=== PATIENT | female | born 1975 | race African-American/Black ===

== ENCOUNTER → 2020-01-24 | Outpatient (CLI) | payer OTHER, BC ==
[~2020-01-24] VITALS: Ht 154.9 cm; Wt 74.4 kg
[~2020-01-24] MED LIST: ACETAMINOPHEN PO; ADVIL200 M1 PO; CALCIUM500 M1 PO; CALCIUM500 MG PO; EMLA TOP; FERRIC CITRATE210 MG PO; HYDROCODONE-AP1 EA11 PO; LIDOCAINE 1% IV; MARINOL 2.5 MG2.5 M1 PO; MIDODRINE HCL10 MG PO; MIRALAX119 GM PO; NEURONTIN 300300 M1 PO; ONDANSETRON4 MG/2 ML IV; SIMVASTATIN80 MG PO; SLEEP AID50 MG PO; SODIUM THI12.5 GM/50 IV PUSH; VICOPROFEN PO; [UNRECOGNIZED DRUG - OTHER] IV
--- NOTE | ~2020-01-24 | HPC ---
[facility] [place] [address] PAIN MANAGEMENT CONSULTATION Name: CARMEN COOK Room #: REG Alvarez Mckeon#: [id number] Admission: 01/24/20 Attend Phys: Jose Herron MD Discharge: Date of : 77 Report #: [id number] THIS REPORT FOR: cc: Leeroy Guidry Theodore M. DO Morgan, Richard L. 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 The patient is a pleasant 44-year-old who is here today with her son's girlfriend. She is legally blind. She is on dialysis for chronic renal failure. She has been on dialysis since 2009. She had renal failure diagnosis in the early 1999, received a kidney in 2004, but lost the kidney in 2009 and has been dialyzing since. She has developed calciphylaxis condition associated with dialysis. This has resulted in ischemic digits and she generally recovers from the episodes. At that time that the ulcers form in the end of her finger, they excruciatingly painful and she has difficulty with light touch and anything that comes in contact with her hands. As a blind woman, her hands of course take on additional needs as she is limited in her senses. She scores her pain as a 9 or 10. When I initially saw her chart and heard that she was on Vicoprofen, I was concerned that since she is anephric and dialyzing, the ibuprofen does not have renal concerns. There are some GI concerns of course with nonsteroidal anti-inflammatory drugs, but she has found that ibuprofen and the nonsteroidal anti-inflammatory drugs in combination with hydrocodone are her most beneficial combination of medications. She is currently taking 2 Vicoprofen 7.5/200 tablets in the morning and 2 in the evening. She has taken it with food. Denies GI side effects. This has been enough to hold her pain at a tolerable level. This calculates to 30 mg of hydrocodone or morphine milligram equivalency of 30. She has received it from her primary care physician and also from other wound physician, but no one has been willing to continue prescribing it for her and for that reason, she is in our clinic today. CURRENT MEDICINES: Simvastatin, MiraLax, midodrine, Emla cream, Vicoprofen, dronabinol, diphenhydramine. [facility] [address] [place] [address] PAIN MANAGEMENT CONSULTATION Name: CARMEN COOK Room #: REG CLI Mike#: [id number] Admission: 01/24/20 Attend Phys: Jose Herron MD Discharge: Date of : 77 Report #: [id number] ALLERGIES: PROMETHAZINE. PAST MEDICAL HISTORY: Significant for renal failure and she had a transplant in 2004, followed by failure of the transplant for reasons that I am uncertain. The transplant kidney was removed on 04/04/2010 and she has been on dialysis since that time. She suffered a stroke 3 years ago and over the course of 3 days became completely blind. There was no other residual. She now has no sight, not even shadows. She walks with a cane and has been able to adjust with therapy. REVIEW OF SYSTEMS: Positive for blindness, fatigue, weakness, dyspnea on exertion, shortness of breath, loss of appetite, nausea and vomiting, constipation with opioids and insomnia. The patient denies use of alcohol, but has been smoking a few cigarettes. She was counseled. Obviously, there are many reasons for her not to smoke including pain. 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 She has 2 grown sons. PHYSICAL EXAMINATION: GENERAL: Pleasant, soft spoken, 44-year-old. She is blind. She is 5 feet and 1, 164 pounds with a BMI of 31.0. VITAL SIGNS: Blood pressure is 126/85, heart rate 91, respirations 16, O2 sat 100, pain intensity 9. CHEST: Clear. CARDIAC: Rhythm is regular. MUSCULOSKELETAL: Examination of her hands reveals healing eschar on the third digit of the right hand. The left hand is okay at this time. Both hands, particularly the second, third and fourth digit, show allodynia and exquisite hypersensitivity to touch. Pulses at the radial and brachial artery are present and full. Capillary refill is diminished bilaterally. There are no nodules identified that are sometimes seen with calciphylaxis. IMPRESSION: 1. Severe chronic pain related to calciphylaxis. 2. Chronic renal failure, on dialysis. 3. Blindness following stroke 3 years ago. 4. Chronic nausea and constipation. 5. Management of high risk medications. I have assumed her Vicoprofen prescription for her under terms of written agreement. We discussed the important aspects of this, first of all one prescribing physician and a single pharmacy. She must safeguard her medicines. [facility] [address] [place] [address] PAIN MANAGEMENT CONSULTATION Name: CARMEN COOK Room #: REG MIKE Mckeon#: [id number] Admission: 01/24/20 Attend Phys: Jose Herron MD Discharge: Date of : 77 Report #: [id number] She is given this information that her pain is improved and her day-to-day function is also significantly better following medications. The improvement in daily function as well as her improvement just from a palliative sense in pain, I think warrants the use of the medicine. We discussed long-term use, the issues of dependence and addiction. The importance of avoiding a situation where she runs out of medicine can go into withdrawal. Finally, we have discussed the importance of using these medications cautiously as medications not as drugs and it is her responsibility to safeguard medications under terms of our agreement. She may be responsible for a urine drug screen to confirm her proper use of medications. She voices understanding of this as I read to her the agreement due to her blindness and we will plan to see her back in the pain clinic in 1 month. Complex medication office visit. By: [id number] Jose Herron MD /nt
[2020-01-24 15:17] VITALS: BP 126/85
--- NOTE | 2020-01-24 15:18 | NUR ---
Pain Clinic Assessment: 1. History of Osteoarthritis: Not Applicable History of Rheumatoid Arthritis: Not Applicable 2. Height: 5 ft. 1 in. 154.9 cm. Weight: 164.0 lb. oz. 74.390 kg. Patient's BMI: 31.0 3. Vital Signs: BP: 126/85 Pulse: 91 Resp: 16 Temp: 02 Sat: 100 ECG Mon: 4. Pain Intensity: 9 5. Fall Risk: Dizziness: Needs help standing or walking: Fallen in the last 3 months: Fall risk comments: 6. Patient on Blood Thinner: None 7. History of Hypertension: N 8. Opioid Therapy greater than 6 weeks: Y Opiate Contract Signed: 9. Risk Assessment Tool Provided: 10. Functional Assessment Tool: 11. Recreational Drug Use: Never Drug Type: Tobacco Use: Current Every Day Smoker Tobacco Type: Cigarettes Amount or Packs/day: 2-3 CIGS How Many Years: 10 Alcohol Use: Yes Frequency: Special Occasions Quant: 1-2
== END ==
LOC: PAIN 06:50
DX: G89.21 Chronic pain due to trauma (principal); E83.59 Other disorders of calcium metabolism; I12.0 Hypertensive chronic kidney disease with stage 5 chronic kidney disease or end stage renal disease; N18.6 End stage renal disease; Z99.2 Dependence on renal dialysis; H54.7 Unspecified visual loss; K59.09 Other constipation; R11.0 Nausea; Z79.899 Other long term (current) drug therapy; Z79.84 Long term (current) use of oral hypoglycemic drugs; Z88.8 Allergy status to other drugs, medicaments and biological substances

== ENCOUNTER → 2020-02-21 | Outpatient (CLI) | payer OTHER, BC ==
[~2020-02-21] VITALS: Ht 154.9 cm; Wt 76.9 kg
[~2020-02-21] MED LIST changes: +HYDROCODONE-AP1 EACH PO
[2020-02-21 10:36] VITALS: BP 99/59
--- NOTE | 2020-02-21 10:44 | NUR ---
Pain Clinic Assessment: 1. History of Osteoarthritis: Not Applicable History of Rheumatoid Arthritis: Not Applicable 2. Height: 5 ft. 1 in. 154.9 cm. Weight: 169.6 lb. oz. 76.930 kg. Patient's BMI: 32.1 3. Vital Signs: BP: 99/59 Pulse: 85 Resp: 16 Temp: 02 Sat: 96 ECG Mon: 4. Pain Intensity: 10 5. Fall Risk: Dizziness: N Needs help standing or walking: N Fallen in the last 3 months: N Fall risk comments: 6. Patient on Blood Thinner: None 7. History of Hypertension: N 8. Opioid Therapy greater than 6 weeks: Y Opiate Contract Signed: 02/21/20 9. Risk Assessment Tool Provided: LOW RISK 0/3 10. Functional Assessment Tool: 11. Recreational Drug Use: Never Drug Type: Tobacco Use: Current Every Day Smoker Tobacco Type: Cigarettes Amount or Packs/day: 1-2 CIGS/DAY How Many Years: Alcohol Use: Yes Frequency: Special Occasions Quant: 1-2
--- NOTE | 2020-02-22 07:39 | HPC ---
[facility] [place] [address] PAIN MANAGEMENT CONSULTATION Name: CARMEN COOK Room #: REG [facility] Mike#: [id number] Admission: 02/21/20 Attend Phys: Norma Vaughan Discharge: Date of : 77 Report #: [id number] THIS REPORT FOR: cc: Leeroy Guidry Theodore M. 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 HISTORY OF PRESENT ILLNESS: This is a very pleasant 44-year-old female who returns to the pain clinic today for evaluation of her opioid medications. She is new to our practice. In early January, Dr. Jose Herron was consulted to take over writing her pain medications from her primary care doctor and wound doctor. The patient has chronic hand pain as a result of calciphylaxis, most specifically on her left hand. Today, she reports a pain score 10/10 stating that the middle 3 fingers of her left hand are very painful. She reports that she takes 2 hydrocodone in the morning and 2 in the evening as well as her gabapentin 300 mg at night. She states that when she does take 2 pain pills at a time that it does decrease her pain. Her pain is an aching, sharp, radiating pain at times. She denies any pain on her right hand. She is here present with a caregiver today since she is legally blind. Today, she is requesting refills of her hydrocodone or possible increase. ALLERGIES: PROMETHAZINE. CURRENT LIST OF MEDICATIONS: Hydrocodone 7.5/325 mg two tablets b.i.d., gabapentin 300 mg at bedtime, simvastatin, MiraLax, Midrin, Emla cream, droperidol, Benadryl, sodium thiosulfate, ondansetron, lidocaine, ibuprofen and calcium. PQRS: 1. She denies any history of osteoarthritis or rheumatoid arthritis. 2. Height is 5 feet 1 inches, Weight is 169, BMI is 32. 3. Vital signs 99/59, pulse is 85, respirations 16, oxygen sat is 96. 4. Pain score is 10/10. 5. Denies dizziness, does not need help walking or standing, has not fallen in the last 3 months. 6. The patient is not on any blood thinners or medicine for hypertension. Her opioid therapy is greater than 6 weeks. We will have her sign an opioid contract today. 7. Risk assessment tool is low. Functional assessment is 32/70. 8. Recreational drug use, she denies. She is a current smoker of 1-2 cigarettes a day and does drink occasional alcohol. [address] [address] PAIN MANAGEMENT CONSULTATION Name: CARMEN COOK Room #: REG MIKE Mckeon#: [id number] Admission: 02/21/20 Attend Phys: Norma Vaughan Discharge: Date of : 77 Report #: [id number] According to the prescription monitoring system, patient filled a prescription on 01/28/2020, she did bring her pain pill bottle with her today that is empty. Dr. Jose Herron did prescribe 60 tablets, but patient has been taking 2 tablets twice a day, which is what she reported at her initial consultation. According to the CDC guidelines, her morphine mEq is 30 MME or lower based on her intake of medications. PHYSICAL EXAMINATION: GENERAL: This is alert and orientated 44-year-old female who appears her stated age, placing her current pain score 10/10. HEENT: She is blind. Normocephalic, atraumatic. Mucous membranes are moist. MUSCULOSKELETAL: Hands revealed eschar on the 3rd finger of her left hand and painful allodynia and hypersensitivity on the second and fourth digits. Her right hand has no pain presently. There are no nodules identified, currently is associated with calciphylaxis. IMPRESSION: 1. Severe chronic pain related to calciphylaxis. 2. Chronic renal failure, on dialysis. 3. Blindness following a cerebrovascular accident. 4. Chronic nausea and constipation on medications. 5. Management of high risk medications. PLAN: 1. We discussed treatment options with the patient today. The patient reports that she has been taking two Hydrocodone twice a day. According to the prescription that Dr. Jose Herron wrote, he prescribed one tablet twice a day, though it is documented that she reported she is taking two at a time when on her initial consultation. After discussion with Dr. Jose Herron, he is agreeable to increase her medications slightly to 10/325. I explained to the patient she is to take one tablet twice a day. This will have her at 20 morphine mEq a day. The patient is agreeable with this plan of care. 2. We will refill her gabapentin 300 mg at bedtime for 90-day supply, 90 pills will be sent electronically. 3. We will have the patient sign an opioid agreement. Dr. Jose Herron did discuss this with her at her initial consultation that we assume that she will take her medicines as prescribed and only obtain prescriptions from our office, fill them in a timely fashion at one pharmacy. The patient is agreeable to this plan of care. 4. The patient will return in 1 month for followup to see how she is adjusting [address] [address] PAIN MANAGEMENT CONSULTATION Name: CARMEN COOK Room #: [facility]#: [id number] Admission: 02/21/20 Attend Phys: Norma Vaughan Discharge: Date of : 77 Report #: [id number] to her new medication. The patient verbalizes understanding. The patient is seen today in collaboration with Dr. Jose Herron. <ELECTRONICALLY SIGNED> By: Norma Vaughan 02/22/20 0739 1230 09 Norma Vaughan /nt
== END ==
LOC: PAIN 07:20
DX: E83.59 Other disorders of calcium metabolism (principal); M79.642 Pain in left hand; M79.641 Pain in right hand; N18.9 Chronic kidney disease, unspecified; Z99.2 Dependence on renal dialysis; I69.998 Other sequelae following unspecified cerebrovascular disease; K59.09 Other constipation; K59.00 Constipation, unspecified; Z79.899 Other long term (current) drug therapy; Z88.8 Allergy status to other drugs, medicaments and biological substances

== ENCOUNTER → 2020-03-25 | Outpatient (CLI) | payer OTHER, BC ==
[~2020-03-25] VITALS: Ht 154.9 cm; Wt 77.7 kg
[2020-03-25 09:39] VITALS: BP 87/60
--- NOTE | 2020-03-25 09:51 | NUR ---
Pain Clinic Assessment: 1. History of Osteoarthritis: Not Applicable History of Rheumatoid Arthritis: Not Applicable 2. Height: 5 ft. 1 in. 154.9 cm. Weight: 171.4 lb. oz. 77.747 kg. Patient's BMI: 32.4 3. Vital Signs: BP: 87/60 Pulse: 93 Resp: 14 Temp: 02 Sat: 95 ECG Mon: 4. Pain Intensity: 9 5. Fall Risk: Dizziness: N Needs help standing or walking: Y Fallen in the last 3 months: N Fall risk comments: 6. Patient on Blood Thinner: None 7. History of Hypertension: N 8. Opioid Therapy greater than 6 weeks: Y Opiate Contract Signed: 02/21/20 9. Risk Assessment Tool Provided: LOW RISK 0/3 10. Functional Assessment Tool: 11. Recreational Drug Use: Never Drug Type: Tobacco Use: Current Every Day Smoker Tobacco Type: Cigarettes Amount or Packs/day: 1-2 CIGS DAY How Many Years: Alcohol Use: No Frequency: Quant:
--- NOTE | 2020-03-26 07:37 | HPC ---
[facility] [address] [place] [address] PAIN MANAGEMENT CONSULTATION Name: CARMEN COOK Room #: REG [facility].#: [id number] Admission: 03/25/20 Attend Phys: Norma Vaughan Discharge: Date of : 77 Report #: [id number] THIS REPORT FOR: cc: Leeroy Guidry Theodore M. DO Hocker, Amanda CNS ~ CC:Jose Herron MD DATE OF SERVICE: 03/25/2020 CHIEF COMPLAINT: Severe pain in her hands related to calciphylaxis. HISTORY OF PRESENT ILLNESS: This is a 44-year-old female who returns to the pain clinic today for refill of her hydrocodone that she uses to help treat her hand pain on her left in her middle 3 fingers. Today, she is reporting an aching, burning, sharp pain, rating her pain score 9/10. When we last saw her, we did increase her hydrocodone strength slightly, encouraging her to take 1 tablet in the morning and 1 at night. She states that she has been doing this. It is beneficial at times as well as elevating her hand and soaking them. She does report today that she has an infection in her middle finger on her left hand. It is wrapped. I am not visualizing it today. She is taking doxycycline for this infected finger. She continues to be on dialysis 3 times a week. ALLERGIES: PROMETHAZINE. CURRENT LIST OF MEDICATIONS: Hydrocodone 10/325, gabapentin 300 mg daily, simvastatin, Midrin, Emla, ferric citrate, Marinol, calcium, Zofran p.r.n., ibuprofen, and calcium carbonate. PQRS: 1. She denies a history of osteoarthritis or rheumatoid arthritis. 2. Height is 5 feet 1 inches. Weight is 171, BMI is 32. Vital signs 87/60, pulse is 93, respirations 14, oxygen sat is 95, pain score is 9/10. Denies dizziness. Does need help walking due to her visual impairment. She has not fallen in the last 3 months. The patient is not on any blood thinners or hypertension. She is on opioid therapy greater than 6 weeks; therefore, an opioid signed contract is on the chart. Risk assessment tool is low. Functional assessment is 32/70. 3. Recreational drug use, she denies. She smokes 1-2 cigarettes a day and does not drink alcohol. PHYSICAL EXAMINATION: GENERAL: This is alert and orientated, well-developed, well-nourished 44-year-old female who appears her stated age, placing her current pain score at 9/10. HEENT: She is blind. [place] [address] PAIN MANAGEMENT CONSULTATION Name: CARMEN COOK Harriett Room #: REG MIKE Mckeon#: [id number] Admission: 03/25/20 Attend Phys: Norma Vaughan Discharge: Date of : 77 Report #: [id number] MUSCULOSKELETAL: Examination of her hands revealed painful allodynia hypersensitivity on her second and fourth digits. She does have her middle finger on the left hand wrapped with gauze. This was not visualized today. No issues with her right hand. There are no nodules identified currently associated with calciphylaxis. IMPRESSION: 1. Severe chronic pain related to calciphylaxis. 2. Chronic renal failure, on dialysis 3 times a week. 3. Blindness followed by a stroke 3 years ago. 4. Chronic nausea and constipation. 5. Management of high risk medications. We reviewed the fact that opiate medications are being used to provide analgesia adequate to support activities of daily living, not attempting to achieve a specific pain score on the 0-10 Visual Analog Scale. The current opiate medications are providing sufficient analgesia to allow the patient to participate in activities of daily living. The patient is not exhibiting any aberrant behavior suggestive of drug diversion. The patient is not having any adverse reactions to medications. The patient is not suffering from daytime somnolence or mental acuity changes. The patient is managing opiate-induced constipation with appropriate iros-siy-aacpziw agents and dietary considerations. The patient was counseled on concern for caution with operating a motor vehicle while using opiate medications. PLAN: 1. We discussed treatment options with the patient today. The patient feels that the current medication of hydrocodone regimen is beneficial despite her high pain number today. We will continue her hydrocodone 10/325, #60. This will be sent electronically by Dr. Jose Herron. 2. The patient is to continue gabapentin. She did report she is taking it 2 times a day. I explained to her per our instructions she is to take it once daily at bedtime. With her dialysis it is more beneficial on a once daily dose as to not cause toxicity and with the clearance decreased in her kidneys, we encouraged 1 a day dosing. The patient verbalizes understanding. No scripts needed today. 3. The patient is seen in collaboration with Dr. Jose Herron. The patient will return in 1 month for a followup. At that time, we will obtain a urine drug screen on this patient. <ELECTRONICALLY SIGNED> By: Norma Vaughan 03/26/20 0737 [id number] Norma Vaughan /honey
== END ==
LOC: PAIN 06:52
DX: E83.59 Other disorders of calcium metabolism (principal); N18.9 Chronic kidney disease, unspecified; Z79.899 Other long term (current) drug therapy; T78.49XA Other allergy, initial encounter; T43.3X5A Adverse effect of phenothiazine antipsychotics and neuroleptics, initial encounter; X58.XXXA Exposure to other specified factors, initial encounter

== ENCOUNTER → 2020-04-17 | Outpatient (CLI) | payer OTHER, BC ==
[~2020-04-17] VITALS: Ht 154.9 cm; Wt 76.7 kg
[~2020-04-17] MED LIST changes: +NEURONTIN 300M300 M2 PO
[2020-04-17 12:55] VITALS: BP 110/67
--- NOTE | 2020-04-17 13:05 | NUR ---
Pain Clinic Assessment: 1. History of Osteoarthritis: Not Applicable History of Rheumatoid Arthritis: Not Applicable 2. Height: 5 ft. 1 in. 154.9 cm. Weight: 169.2 lb. oz. 76.749 kg. Patient's BMI: 32.0 3. Vital Signs: BP: 110/67 Pulse: 90 Resp: 14 Temp: 02 Sat: 98 ECG Mon: 4. Pain Intensity: 9 5. Fall Risk: Dizziness: N Needs help standing or walking: N Fallen in the last 3 months: N Fall risk comments: 6. Patient on Blood Thinner: None 7. History of Hypertension: N 8. Opioid Therapy greater than 6 weeks: Y Opiate Contract Signed: 02/21/20 9. Risk Assessment Tool Provided: LOW RISK 0/3 10. Functional Assessment Tool: 11. Recreational Drug Use: Never Drug Type: Tobacco Use: Current Every Day Smoker Tobacco Type: Cigarettes Amount or Packs/day: 1 1/2 cig/da How Many Years: 15 Alcohol Use: Yes Frequency: Special Occasions Quant: "not every day"
--- NOTE | 2020-04-21 14:17 | HPC ---
[facility] [address] [place] [address] PAIN MANAGEMENT CONSULTATION Name: CARMEN COOK Harriett [facility] [id number] Admission: 04/17/20 Attend Phys: Norma Vaughan Discharge: Date of : 77 Report #: [id number] THIS REPORT FOR: cc: Leeroy Guidry Theodore M. DO Hocker,Norma WELCH ~ CC: Jose Herron MD DATE OF SERVICE: 04/17/2020 CHIEF COMPLAINT: Severe hand pain due to calciphylaxis HISTORY OF PRESENT ILLNESS: This is a 44-year-old female who returns to the Pain Clinic today to discuss medication management for her ongoing left hand pain, most specifically today her middle finger of her left hand due to renal issues and she suffered from calciphylaxis. The patient is rating her pain score at 9/10 today. It is a sharp, aching pain. She does use her hydrocodone and gabapentin. She feels that any time her hand is moved or bumped, it is very painful. She feels the medications have been beneficial in controlling her pain. She did tell the nurse upon leaving today that she is going to have her left hand middle finger amputated, though she did not discuss this with me when I examined her hand. ALLERGIES: PROMETHAZINE. CURRENT LIST OF MEDICATIONS: Hydrocodone 10/325 b.i.d., gabapentin 300 mg daily, simvastatin, Midrin, Emla, ferric citrate, calcium, sodium, thiosulfate, Zofran, lidocaine, ibuprofen and calcium. PQRS: 1. She denies any history of osteoarthritis or rheumatoid arthritis. 2. Height is 5 feet 1 inch, weight is 169, BMI is 32. Vital signs: 110/67, pulse is 90, respirations 14, oxygen sat is 98%. Pain score is 9/10. She denies dizziness, does not need help walking. She has not fallen in the last 3 months. She is not on any blood thinners or medicine for hypertension. Opioid therapy is greater than 6 weeks; therefore, an opioid signed contract is on the chart. Risk assessment is low. Functional assessment is 32/70. 3. Recreational drug use, she denies. She currently smokes one and a half cigarettes a day. Her goal is to stop next week. She occasionally drinks alcohol. According to the prescription monitoring system, the patient is filling appropriately. She is due to fill next week. Her morphine mEq is 20 MME per day. We will check a random drug screen today obtaining a buccal swab. PHYSICAL EXAMINATION: [address] [address] PAIN MANAGEMENT CONSULTATION Name: CARMEN COOK Room #: REG [facility]#: [id number] Admission: 04/17/20 Attend Phys: Norma Vaughan Discharge: Date of : 77 Report #: [id number] GENERAL: This is a well-developed and well-nourished, alert and orientated 44-year-old, placing her pain score today at 9/10. HEENT: She is blind. She is wearing a mask. Hearing is within normal limits. MUSCULOSKELETAL: Examination of her hand reveals healing scar on her third digit of her left hand. No issues with her right hand. Hand shows allodynia and hypersensitivity to touch. No nodules identified that are seen with calciphylaxis at this time. IMPRESSION: 1. Severe chronic pain related to calciphylaxis. 2. Chronic renal failure, on dialysis Tuesday, Tuesday, Tuesday. 3. Blindness following a stroke. 4. Chronic nausea and constipation. 5. Management of high risk medications. PLAN: 1. We discussed treatment options with the patient today. I discussed with the patient is taking her gabapentin daily. We have found that with renal patents, at times, they have better results from the gabapentin taking a higher dose post-dialysis days. I have encouraged the patient to alter her medication regime to take her gabapentin 600 mg Tuesday, Tuesday, Tuesday, none on the rest of the week. Scripts were provided for 24 capsules with 2 refills. 2. We will refill her hydrocodone 10/325. The patient takes 2 tablets a day. 3. We obtained an oral specimen for a random drug screen today. The patient states her medication was on 04/16/2020. 4. The patient is seen in collaboration with Dr. Jose Herron. The patient will return in 1 month and see him in appointment. <ELECTRONICALLY SIGNED> By: Norma Vaughan 04/21/20 1417 1501 [id number] Norma Vaughan /honey
== END ==
LOC: PAIN 08:49
PROVIDERS: ATTEND Clinical Nurse Specialist Adult Health
DX: N18.9 Chronic kidney disease, unspecified (principal); M25.849 Other specified joint disorders, unspecified hand; Z79.899 Other long term (current) drug therapy; Z99.2 Dependence on renal dialysis

== ENCOUNTER → 2020-05-15 | Outpatient (CLI) | payer OTHER, BC ==
[~2020-05-15] VITALS: Ht 154.9 cm; Wt 74.9 kg
[~2020-05-15] MED LIST changes: +HYDROCODON-ACE1 EAC5 PO
--- NOTE | ~2020-05-15 | HPC ---
[facility] [place] [address] PAIN MANAGEMENT CONSULTATION Name: CARMEN COOK Room #: REG MIKE Cynthia.#: [id number] Admission: 05/15/20 Attend Phys: Jose Herron MD Discharge: Date of : 77 Report #: [id number] THIS REPORT FOR: cc: Leeroy Guidry,Jose Vincent MD ~ CC: Jose Guidry DATE OF SERVICE: 05/15/2020 Follow up visit for chronic pain, bilateral hand calciphylaxis. The patient is a very nice 45-year-old who I have agreed to provide medication under an opioid agreement for chronic pain related to her complications of renal failure and dialysis. She has calciphylaxis, a well-described condition that causes ischemia and excruciating pain. Pain is constant and when she tries to use her hands, the pain increases dramatically. We have agreed to provide her with hydrocodone 20 mg a day. Hydrocodone 10/325, #60 tablets dispensed last on 03/25/2020, lasted until 04/25/2020 when she ran out. She had a second prescription prescribed, although it was at a time when the electronic prescribing system was down and a handwritten prescription was given on 04/17/2020. We have a copy of that prescription, but apparently it was lost at home and she did not call to refill it immediately. Appointment was made and she is here today to see if we will renew her medicines for her. I did check the prescription drug monitoring information and her last prescription was filed and picked up on 03/25/2020. Today, she reports her pain as a 9/10. She has only been taking Tylenol. PQRS: Positive for only the calciphylaxis, she denies any arthritic pains. BMI is 32.4. Blood pressure 125/83, pulse 86, respirations 14, O2 sat 100. She is not a fall risk, she is not on blood thinners, she has no history of hypertension. Her opioid agreement signed in our clinic on 02/21/2020 was reviewed including her important requirements to safeguard the medication for only her use. She is at low risk for addiction scoring 0 on the opioid risk tool and her functional assessment tool score is 32, this is slightly higher than it has been in the past. She continues to smoke 1-1/2 packs per day. This clearly is contributing to her pain and I discussed it with her at some length today. IMPRESSION: 1. Calciphylaxis. 2. Renal failure[place] [address] PAIN MANAGEMENT CONSULTATION Name: CARMEN COOK Room #: REG Alvarez Mckeon#: [id number] Admission: 05/15/20 Attend Phys: Jose Herron MD Discharge: Date of : 77 Report #: [id number] 3. Blindness status post cerebrovascular accident. 4. Management of high risk medications. Medications were renewed electronically for 3 months. Should be much more accountable and we will continue to monitor the prescription drug monitoring information to make sure that they are being refilled at appropriate intervals. Followup visit planned in July. By: [id number] Jose Herron MD /nt
[2020-05-15 13:15] VITALS: BP 125/83
--- NOTE | 2020-05-15 13:35 | NUR ---
Pain Clinic Assessment: 1. History of Osteoarthritis: Not Applicable History of Rheumatoid Arthritis: Not Applicable 2. Height: 5 ft. 1 in. 154.9 cm. Weight: 165.2 lb. oz. 74.934 kg. Patient's BMI: 31.2 3. Vital Signs: BP: 125/83 Pulse: 86 Resp: 14 Temp: 02 Sat: 100 ECG Mon: 4. Pain Intensity: 5 5. Fall Risk: Dizziness: N Needs help standing or walking: N Fallen in the last 3 months: N Fall risk comments: 6. Patient on Blood Thinner: None 7. History of Hypertension: N 8. Opioid Therapy greater than 6 weeks: Y Opiate Contract Signed: 02/21/20 9. Risk Assessment Tool Provided: LOW RISK 0/3 10. Functional Assessment Tool: 11. Recreational Drug Use: Never Drug Type: Tobacco Use: Current Every Day Smoker Tobacco Type: Cigarettes Amount or Packs/day: 1 1/2 PPD How Many Years: Alcohol Use: Yes Frequency: Quant:
== END ==
LOC: PAIN 07:09
PROVIDERS: ATTEND Anesthesiology Pain Medicine
DX: E83.59 Other disorders of calcium metabolism (principal); G89.29 Other chronic pain; N19 Unspecified kidney failure; H54.3 Unqualified visual loss, both eyes; Z86.73 Personal history of transient ischemic attack (TIA), and cerebral infarction without residual deficits; Z79.899 Other long term (current) drug therapy

== ENCOUNTER → 2020-05-20 | Outpatient (CLI) | payer OTHER, BC | LOC: SJCVC 13:08 | PROVIDERS: ATTEND Internal Medicine Cardiovascular Disease | DX: I95.9 Hypotension, unspecified (principal); E78.5 Hyperlipidemia, unspecified; I12.0 Hypertensive chronic kidney disease with stage 5 chronic kidney disease or end stage renal disease; N18.6 End stage renal disease; T86.11 Kidney transplant rejection; F17.200 Nicotine dependence, unspecified, uncomplicated; Z99.2 Dependence on renal dialysis; Z79.899 Other long term (current) drug therapy; Z82.49 Family history of ischemic heart disease and other diseases of the circulatory system ==

== ENCOUNTER → 2020-06-05 | Outpatient (CLI) | payer OTHER, BC | LOC: SJCVCIMAG 08:50 | PROVIDERS: ATTEND Internal Medicine Cardiovascular Disease | DX: I07.1 Rheumatic tricuspid insufficiency (principal); R00.0 Tachycardia, unspecified; I95.9 Hypotension, unspecified; N18.6 End stage renal disease; Z79.899 Other long term (current) drug therapy; Z99.2 Dependence on renal dialysis ==

== ENCOUNTER → 2020-08-28 | Outpatient (CLI) | payer OTHER, BC ==
[~2020-08-28] VITALS: Ht 152.4 cm; Wt 77.6 kg
--- NOTE | ~2020-08-28 | HPC ---
[facility] [address] [place] [address] PAIN MANAGEMENT CONSULTATION Name: CARMEN COOK [facility] [id number] Admission: 08/28/20 Attend Phys: Norma Vaughan Discharge: Date of : 77 Report #: [id number] THIS REPORT FOR: cc: Leeroy Guidry,Leeroy Scott,Norma WELCH ~ CC: Norma Guidry DATE OF SERVICE: 08/28/2020 CHIEF COMPLAINT: Chronic pain, bilateral hand calciphylaxis. HISTORY OF PRESENT ILLNESS: This is a very pleasant 45-year-old female who returns to the pain clinic today for a refill of her medications. Today, the patient is reporting her pain score is 4/10. She reports that her left hand pain is doing quite well. She feels that the colder weather has started to flare it again slightly. Normally, her pain is worse in the wintertime per her report. Her pain has increased with movement and if her hand is bumped, but she feels that the medications have been working quite well. The patient does report taking her gabapentin on Tuesday and , though we had prescribed it for Tuesday, Tuesday, Tuesday after dialysis. She is here today by herself and took a [employer] ride to get to her appointment today. She denies any problems with constipation or daytime somnolence. ALLERGIES: PROMETHAZINE. CURRENT LIST OF MEDICATIONS: Hydrocodone 10/325 p.r.n., gabapentin 300 mg 2 tablets post-dialysis, simvastatin, midodrine, Emla cream, ferric citrate, Marinol, calcium, ibuprofen and sodium thiosulfate. PQRS: 1. Positive for calciphylaxis. Denies arthritic changes or rheumatoid arthritis. 2. Height is 5 feet, weight is 171, BMI is 33. 3. Vital signs 118/81, pulse is 88, respirations 16, oxygen sat is 96. 4. Pain score 4/10. Denies dizziness. Does use a cane for assistance with ambulation due to being blind. She has not fallen in the last 3 months. The patient is not on any blood thinners or medicine for hypertension. 5. Her opioid therapy is greater than 6 weeks; therefore, an opioid signed contract is on the chart. Risk assessment is low. Functional assessment is 32/70. 6. Recreational drug use, she denies. She is a current smoker of half a pack of cigarettes a day [place] [address] PAIN MANAGEMENT CONSULTATION Name: CARMEN COOK Room [facility]: [facility] [id number] Admission: 08/28/20 Attend Phys: Norma Vaughan Discharge: Date of : 77 Report #: [id number] According to the prescription monitoring system, the patient does fill clonazepam on a monthly basis and has not filled her hydrocodone since 05/15. She had 2 prescriptions at the pharmacy that we will void today. There is a buccal swab on the chart that is appropriate for her medications. PHYSICAL EXAMINATION: GENERAL: This is alert and orientated, well-developed, well-nourished 45-year-old female, placing her current pain score 4/10. HEENT: She is blind. She is wearing a mask. Her hearing was within normal limits. MUSCULOSKELETAL: Examination of her left hand reveals healing scar on her third digit of her left hand. Hand shows allodynia and hypersensitivity to touch. No nodules identified with calciphylaxis at this time. IMPRESSION: 1. Calciphylaxis. 2. Renal failure, on dialysis. 3. Blindness as a result of cerebrovascular accident. 4. Management of high risk medications. We reviewed the fact that opiate medications are being used to provide analgesia adequate to support activities of daily living, not attempting to achieve a specific pain score on the 0-10 Visual Analog Scale. The current opiate medications are providing sufficient analgesia to allow the patient to participate in activities of daily living. The patient is not exhibiting any aberrant behavior suggestive of drug diversion. The patient is not having any adverse reactions to medications. The patient is not suffering from daytime somnolence or mental acuity changes. The patient is managing opiate-induced constipation with appropriate cxjp-mts-mohiods agents and dietary considerations. The patient was counseled on concern for caution with operating a motor vehicle while using opiate medications. PLAN: 1. We discussed treatment options with the patient today. We discussed why her gabapentin was prescribed post-dialysis on days Tuesday, Tuesday, Tuesday and not to be taken on Tuesday, due to the excretion in her kidneys and trying to have the most benefit to decrease her pain by taking it after dialysis. The patient verbalizes understanding. She will change the times that she does take this medicine. Scripts will be sent electronically for gabapentin 300 mg tablets, 2 of them Tuesday, Tuesday, Tuesday, quantity 72 with one additional refill for a total of 6 months. 2. The patient states she takes her hydrocodone very sparingly. She believes it is beneficial in decreasing some of her pain. Per the PDMP report, she had not filled her 4 and 8 week prescriptions, which we did void at the pharmacy. Scripts will be sent electronically today by Dr. Herron for [address] [address] PAIN MANAGEMENT CONSULTATION Name: CARMEN COOK Room #: [facility] MIKE Mckeon#: [id number] Admission: 08/28/20 Attend Phys: Norma Vaughan Discharge: Date of : 77 Report #: [id number] reminded the patient that if she needs to fill those medications, they are at the pharmacy. 3. The patient will return in 3-6 months as needed for followup. By: [id number] Norma Vaughan /nt
[2020-08-28 08:33] VITALS: BP 118/81
--- NOTE | 2020-08-28 08:38 | NUR ---
Pain Clinic Assessment: 1. History of Osteoarthritis: Not Applicable History of Rheumatoid Arthritis: Not Applicable 2. Height: 5 ft. 0 in. 152.4 cm. Weight: 171.0 lb. oz. 77.565 kg. Patient's BMI: 33.4 3. Vital Signs: BP: 118/81 Pulse: 88 Resp: 16 Temp: 02 Sat: 96 ECG Mon: 4. Pain Intensity: 4 5. Fall Risk: Dizziness: N Needs help standing or walking: N Fallen in the last 3 months: N Fall risk comments: 6. Patient on Blood Thinner: None 7. History of Hypertension: N 8. Opioid Therapy greater than 6 weeks: Y Opiate Contract Signed: 02/21/20 9. Risk Assessment Tool Provided: LOW RISK 0 10. Functional Assessment Tool: 11. Recreational Drug Use: Never Drug Type: Tobacco Use: Current Every Day Smoker Tobacco Type: Cigarettes Amount or Packs/day: 1 1/2 CIG How Many Years: 10 Alcohol Use: Yes Frequency: Special Occasions Quant:
== END ==
LOC: PAIN 06:46
PROVIDERS: ATTEND Clinical Nurse Specialist Adult Health
DX: M25.842 Other specified joint disorders, left hand (principal); M25.841 Other specified joint disorders, right hand; G89.29 Other chronic pain; N17.9 Acute kidney failure, unspecified; H47.619 Cortical blindness, unspecified side of brain; F11.20 Opioid dependence, uncomplicated; Z88.8 Allergy status to other drugs, medicaments and biological substances; Z79.899 Other long term (current) drug therapy

== ENCOUNTER → 2021-02-05 | Outpatient (CLI) | payer OTHER, BC | LOC: SJCVC 12:50 | PROVIDERS: ATTEND Internal Medicine Cardiovascular Disease | DX: I95.9 Hypotension, unspecified (principal); E78.00 Pure hypercholesterolemia, unspecified; I12.0 Hypertensive chronic kidney disease with stage 5 chronic kidney disease or end stage renal disease; N18.6 End stage renal disease; Z99.2 Dependence on renal dialysis; T86.11 Kidney transplant rejection; H54.8 Legal blindness, as defined in USA; E78.5 Hyperlipidemia, unspecified; E87.5 Hyperkalemia; M72.2 Plantar fascial fibromatosis; E05.80 Other thyrotoxicosis without thyrotoxic crisis or storm; Z79.899 Other long term (current) drug therapy; Z87.891 Personal history of nicotine dependence ==